=== PATIENT | female | born 1995 | race Caucasian/White ===

== ENCOUNTER 2017-09-13 12:53 | Emergency (ER) | payer OTHER ==
[~2017-09-13] VITALS: Ht 167.6 cm; Wt 77.3 kg
[~2017-09-13 12:53] MED LIST: ALBU8HFA IH; NOCURR
[2017-09-13] MEDS ORDERED: DEXAMETHASONE SOD PHOS 4 MG/ML 5 ML VIAL IVP ONE (13:30)
[2017-09-13] MEDS ORDERED: SODIUM CHLORIDE 0.9% 1,000 ML IV ONE (13:30)
[2017-09-13] MEDS ORDERED: DiphenhydrAMINE HCL 50 MG/ML VIAL IVP ONE (13:30)
[2017-09-13 15:25] VITALS: BP 130/61
== END 2017-09-13 16:10 | disposition home or self-care (01) ==
LOC: EMS 12:55
DX: T39.1X5A Adverse effect of 4-Aminophenol derivatives, initial encounter (principal); J45.909 Unspecified asthma, uncomplicated
CPT/HCPCS: 96361; 96374; 96375; 99285; J1100; J1200; J7030